=== PATIENT | male | born 1950 | race Caucasian/White ===

== ENCOUNTER 2019-03-28 06:38 | Day surgery (SDC) | payer BC, SELFPAY ==
--- NOTE | 2019-03-28 | PATH_ITS ---
[facility] Accession Number: [id number] . 01 Material submitted: . PART A: cecum - CECAL POLYPS PART B: colon - POLYP AT 80 CM PART C: colon - POLYPS AT 60 CM . 02 Diagnosis: A. Cecum, Polyps: Fragments of colonic mucosa with no diagnostic abnormality, consistent with polypoid redundancies. Negative for serrated lesion, dysplasia or malignancy. . B. Colon Polyp at 80 cm, Biopsy: Tubular adenoma. . C. Colon Polyps at 60 cm, Biopsies: Tubular adenoma x2. MRV 03/29/2019 1236 Local . 02 Electronically signed: . Bay Snow MD, PhD, Pathologist NPI- [id number] . 01 Gross description: . Part A: CECAL POLYPS: Received in formalin are 3 fragment(s) of prieto, soft tissue measuring 0.1 x 0.1 x 0.1 cm to 0.2 x 0.1 x 0.1 cm submitted entirely in 1 cassette(s) Part B: POLYP AT 80 CM: Received in formalin are 2 fragment(s) of prieto, soft tissue measuring 0.1 x 0.1 x 0.1 cm to 0.2 x 0.1 x 0.1 cm submitted entirely in 1 cassette(s) Part C: POLYPS AT 60 CM: Received in formalin are 2 fragment(s) of prieto, soft tissue measuring 0.1 x 0.1 x 0.1 cm to 0.2 x 0.2 x 0.2 cm submitted entirely in 1 cassette(s) /[facility] [place] 03/28/2019 1945 Local . 02 Pathologist provided ICD-10: D12.6, K63.5 . 02 CPT . 849919, 499208, [id number] Performed at: 01 [facility] [address] [address], [place], [place] [id number] MD Tacos Levin MD Phone: [phone] Performed at: 02 [facility] [address] [place] [id number] MD Heather Rendon MD Phone: [phone]
[2019-03-28 07:12] VITALS: BP 137/85; PULSE 83; RESP 18; TEMP 36.8; O2SAT 96; BMI 32.5
[2019-03-28] MEDS: SODIUM CHLORIDE 0.9% 1,000 ML 200 ML IV (07:49)
--- NOTE | 2019-03-28 07:50 | PM.HP.1 ---
History of Present Illness History of Present Illness Date Patient Seen: 03/28/19 Time Patient Seen: 07:51 Chief complaint: [id number] Narrative: Patient presents for colorectal screening. There previous colonoscopy 5 years ago that was significant for adenomatous polyps as well as a delayed onset of bleeding following polypectomy. There are not on anticoagulation.. Father developed colon cancer otherwise family history is unremarkable.. On further history denies any recent gastrointestinal symptoms. No nausea, vomiting, abdominal pain, loss of appetite, unexplained weight loss, change in bowel habits, diarrhea, constipation, melena, hematochezia, or bright red blood per rectum. Patient History Medical History (Updated 03/28/19 @ 07:53 by Yogi Kent MD) HTN (hypertension) (Acute) Surgical History (Updated 03/28/19 @ 07:52 by Yogi Kent MD) History of cholecystectomy (Acute) Family & Social History Family History (Updated 03/28/19 @ 07:52 by Yogi Kent MD) Father Cancer Social History: household members spouse Tobacco & Substance use: Smoking Status Never smoker alcohol intake current alcohol intake frequency other Substance Use Type does not use Meds Home Medications and Allergies Home Medications Medication Instructions Recorded Confirmed Type ASPIRIN (Aspirin Low Dose) #0 06/17/09 History CHOLECALCIFEROL (VITAMIN D3) 1,000 iu PO Q DAY #0 06/17/09 History (Vitamin D3) MULTIVITAMIN (Multivitamin 1 cap PO EVERY DAY #0 06/17/09 History -) [LOTRTREL 12/26] #0 06/17/09 History cetirizine-pseudoephedrine 1 tab PO Q12H PRN 03/28/19 03/28/19 History [Zyrtec-D] furosemide [Lasix] 20 mg PO DAILY 03/28/19 03/28/19 History ibuprofen 200 mg PO Q6H PRN 03/28/19 03/28/19 History lutein-zeaxanthin 1 cap PO DAILY 03/28/19 03/28/19 History naproxen sodium [Aleve] 220 mg PO PRN PRN 03/28/19 03/28/19 History nitroglycerin 0.4 mg SUBLINGUAL PRN PRN 03/28/19 03/28/19 History sildenafil [Viagra] 50 mg PO DAILY PRN 01/20/20 01/20/20 History simvastatin 20 mg PO DAILY 03/28/19 03/28/19 History Allergies Allergy/AdvReac Type Severity Reaction Status Date / Time No Known Drug Allergies Allergy Verified 03/28/19 07:16 Review of Systems Review of Systems Narrative: A 10 point review of systems is negative except as noted in the HPI Exam Vital Signs (past 8 hours): - 03/28/19 07:12 Temperature 98.2 F Pulse Rate 83 Respiratory Rate 18 Blood Pressure 137/85 Pulse Oximetry 96 Oxygen Delivery Method Room Air Narrative Exam Narrative: General-no acute distress, well nourished HEENT-moist mucous membranes, no scleral icterus Neck-supple, no lymphadenopathy Chest- non labored respirations, clear to auscultation bilaterally Cardiac-regular rate no peripheral edema Abdomen-soft, nontender, non distended Extremities-warm, well perfused Neurological-alert and oriented, no focal deficits Assessment & Plan Assessment and plan (1) Screening for colon cancer: Current visit: Yes Status: Acute Assessment & Plan narrative: The patient requires colorectal screening and colonoscopy is recommended. Technical details were discussed. Risks, benefits, alternatives explained. Risks including but not limited to myocardial infarction, aspiration, bleeding, pain, missed lesion, incomplete examination, need for further radiographic studies, colonic perforation, and need for major abdominal surgery were discussed. All questions were answered to their satisfaction, and they are in agreement with this plan.
--- NOTE | 2019-03-28 08:34 | PM.OP.ENDO ---
Operative Date/Time/Diagnoses Date of procedure: 03/28/19 Time of procedure: 08:35 Pre-op diagnosis: Family history of colon cancer History of adenomatous polyp Post-op diagnosis: same Procedure & Clinicians Study performed: Colonoscopy Same procedure as scheduled: Yes Indications: This is a 68-year-old man with a history of adenomatous polyps last colonoscopy 5 years ago and first-degree relative with colon cancer. He presents for routine screening. Surgeon: Yogi Kent Procedure Notes SCOAP/Timeout: Performed Procedure in detail: Patient placed in left lateral decubitus position. Time out was performed. Procedural sedation was administered with Versed and Fentanyl. A rectal exam demonstrated no external hemorrhoids no internal masses. Colonoscopy scope was placed into the rectum and advanced through the colon to the cecum. The ileocecal valve was identified. The scope was then slowly withdrawn examining colon thoroughly in all directions. The colonoscopy was notable for the following 1. Cecal polyp less than 1 cm adenomatous appearing removed with Jumbo biopsy forceps 2. Adenomatous appearing polyp less than 1 cm and 80 cm from the anal verge removed with Jumbo biopsy forceps 3. Two adenomatous appearing polyps each less than 1 cm at 60 cm from the anal verge both removed with Jumbo biopsy forceps 4. Grade 2 internal hemorrhoids 5. Quality of prep moderate Scope withdrawal time: 22 Sedation minutes: 36 Findings: internal hemorrhoids and polyp Specimen(s): other (Polyps) Impression: Multiple adenomatous polyps Post-procedure Recommendations: Colonscopy in 5 years Disposition: same day surgery
[2019-03-28] MEDS: MIDAZOLAM 5 MG/5 ML VIAL IV (08:37)
[2019-03-28] MEDS: fentaNYL 250 MCG/5 ML INJ IV (08:37)
[2019-03-28 08:39] VITALS: BP 132/73; PULSE 64; RESP 13; O2SAT 98
[2019-03-28 08:42] VITALS: BP 122/75; PULSE 66; RESP 13; TEMP 36.6; O2SAT 97
[2019-03-28 08:47] VITALS: BP 126/76; PULSE 70; RESP 14; O2SAT 99
[2019-03-28 08:52] VITALS: BP 123/75; PULSE 61; RESP 15; O2SAT 98
[2019-03-28 09:00] VITALS: BP 121/78; PULSE 60; RESP 15; TEMP 36.3; O2SAT 96
== END 2019-03-28 09:12 | disposition home or self-care (01) ==
PROVIDERS: Family Provider Family Medicine; PCP Family Medicine; Visit Provider Surgery
PROC: 0DJD8ZZ Inspection of Lower Intestinal Tract, Via Natural or Artificial Opening Endoscopic (ICD-10-PCS; CPT 45378; principal; 2019-03-28 07:45)
DX: Z12.11 Encounter for screening for malignant neoplasm of colon (principal); Z86.010 Personal history of colon polyps; Z80.0 Family history of malignant neoplasm of digestive organs; K64.1 Second degree hemorrhoids; I10 Essential (primary) hypertension; D12.6 Benign neoplasm of colon, unspecified
CPT/HCPCS: 45380; 99152; J2250; J3010

== ENCOUNTER → 2021-05-06 11:03 | Outpatient (CLI) | payer MEDICARE, OTHER, SELFPAY ==
[2021-05-06 13:09] LABS: COVID19 -Nasal RAPID Negative (Negative)
== END ==
PROVIDERS: Family Provider Family Medicine; PCP Family Medicine; Visit Provider Surgery
DX: Z01.812 Encounter for preprocedural laboratory examination (principal); Z20.822 Contact with and (suspected) exposure to COVID-19
CPT/HCPCS: 87635; C9803

== ENCOUNTER 2021-05-07 10:25 | Day surgery (SDC) | payer MEDICARE, OTHER, SELFPAY ==
[2021-04-02 09:39] VITALS: BMI 35.2
[2021-05-07 11:11] VITALS: BP 150/85; PULSE 79; RESP 12; TEMP 36.7; O2SAT 97; BMI 35.2
[2021-05-07] MEDS: LACTATED RINGERS 1,000 ML 42 ML IV (11:29)
--- NOTE | 2021-05-07 12:51 | PM.HP.1 ---
History of Present Illness History of Present Illness Date Patient Seen: 05/07/21 Time Patient Seen: 12:51 Chief complaint: SDC Narrative: 70 year old man with a right inguinal hernia that bothers him. He had a CT scan which showed bilateral inguinal herniae. He has never had symptoms on the left side. Patient History Medical History (Updated 04/02/21 @ 09:41 by Felicia Huber RN) Arthritis Elevated cholesterol HTN (hypertension) Sinus drainage Surgical History History of cholecystectomy Family & Social History Family History Father Cancer Social History: household members spouse Tobacco & Substance use: Smoking Status Never smoker alcohol intake current alcohol intake frequency holiday/special occasion Substance Use Type does not use Meds Home Medications and Allergies Home Medications Medication Instructions Recorded Confirmed Type aspirin 81 mg tablet,delayed 81 mg PO DAILY #0 06/17/09 05/07/21 History release (Aspirin Low Dose) cholecalciferol (vitamin D3) 50 50 mcg PO DAILY #0 06/17/09 04/02/21 History mcg (2,000 unit) capsule (Vitamin D3) multivitamin 1 tab PO DAILY #0 06/17/09 05/07/21 History furosemide 20 mg tablet (Lasix) 20 mg PO DAILY 03/28/19 05/07/21 History lutein 25 mg-zeaxanthin 5 mg 1 cap PO DAILY 03/28/19 05/07/21 History capsule sildenafil 50 mg tablet (Viagra) 50 mg PO DAILY PRN 03/28/19 04/02/21 History simvastatin 20 mg tablet 20 mg PO DAILY 03/28/19 05/07/21 History amlodipine 10 mg-benazepril 20 mg 1 cap PO DAILY 04/02/21 05/07/21 History capsule naproxen sodium 220 mg capsule 220 mg PO Q8H PRN 04/02/21 05/07/21 History (Aleve) triamcinolone acetonide 0.1 % applic TOPICAL 05/07/21 History topical cream Allergies Allergy/AdvReac Type Severity Reaction Status Date / Time No Known Drug Allergies Allergy Verified 05/07/21 11:06 Exam Vital Signs (past 8 hours): - 05/07/21 11:11 Temperature 98.0 F Pulse Rate 79 Respiratory Rate 12 Blood Pressure 150/85 H Pulse Oximetry 97 Oxygen Delivery Method Room Air Const General: comfortable Resp Effort & Inspection: normal respiratory effort GI Palpation: soft Assessment & Plan Assessment and plan (1) Right inguinal hernia: Status: Acute Plan 70 year old man with a symptomatic right inguinal hernia. We reviewed the risks and benefits of open right inuinal hernia. He would like to proceed. COVID-19 COVID-19 status: Negative Result date/Date tested (Pos, Neg/Pending): 05/06/21 Time Spent With Patient Critical Care time: I spent a total of [] minutes of critical care time on this patient's care today; this time is exclusive of procedural time.
[2021-05-07] MEDS: CEFAZOLIN 2 GM/20 ML SYRINGE IV (13:36)
--- NOTE | 2021-05-07 13:46 | SUR.OPER ---
Supine on padded OR bed, head on pillow, arms secured on padded arm boards at <90 degrees abduction, legs uncrossed, safety belt at thigh, tape over blanket over lower legs.
[2021-05-07] MEDS: BUPIVACAINE 0.5% (PF) 30 ML, EPINEPHrine 0.15 MG INJ (14:03)
[2021-05-07] MEDS: LIDOCAINE 1% 20 ML INJ (14:06)
--- NOTE | 2021-05-07 15:21 | P.OP_ITS ---
Operative Date/Time/Diagnoses Date of procedure: 05/07/21 Time of procedure: 15:21 Pre-op diagnosis: Right inguinal hernia Post-op diagnosis: same Procedure & Clinicians Procedure: Open right inguinal hernia repair with mesh Same procedure as scheduled: Yes Surgeon: Faisal Rodriguez Operations Research Scientist: Yogi Kent Anesthesia Type: General Operative Notes Findings: Large direct right inguinal hernia and patulous abdominal Estimated Blood Loss (mL): 20 Procedure in detail: Preoperative antibiotic was administered. The patient was brought to the operating room and placed on the table in supine position general anesthesia was induced. The right groin was prepped and draped in the normal fashion and a time-out was performed. Roughly 10 mL of local anesthetic were injected into the skin and subcutaneous adipose tissue over the right groin. A 10 cm incision was made over the right inguinal canal. Dissection was carried down through the subcutaneous adipose tissue. A bridging vein was tied off with 3-0 Vicryl ties and divided. We exposed the external oblique aponeurosis in the direction of the fibers. Additional local was injected deep to the aponeurosis. A 15 blade scalpel was used to cleo the external oblique aponeurosis. Metzenbaum scissors were used to carefully open the aponeurosis in the direction of the fibers taking care not to injure the underlying ilioinguinal nerve which was well seen and protected. We completely exposed the inguinal canal. The cord was dissected free from the inguinal ligament and floor of the inguinal canal and the external oblique aponeurosis was dissected off of the internal oblique taking care not to injure the hypogastric nerve. We encircled the cord with a Mercedez drain for retraction. A large fat-containing direct right inguinal hernia was dissected free and reduced into the abdomen. We then opened the large plug and patch. The plug was secured into the direct defect with multiple 0 Ethibond sutures. The mesh sheet was secured with multiple interrupted 0 Ethibond sutures to the pubic tubercle and shelving edge of the inguinal ligament as well as to the conjoint tendon medially. The tails were secured to each other to recreate the internal ring and both tails were secured to the inguinal ligament. We injected some more local into the fatty tissue in the inguinal canal and cord. Finally, we removed the Franklin drain and closed the external oblique fascia with a running 3-0 Vicryl suture. Skin was closed with interrupted 3-0 Vicryl dermal sutures and a running 4 Monocryl subcuticular stitch. The case was difficult because of the patient's obesity, patulous lower abdominal wall and large direct defect. Dr. Kent provided assistance with exposure and intraoperative decision making and his assistance was essential to completion of the case. EBL 10 mL The patient was awakened and brought to recovery room. Post-operative Condition: stable Disposition: PACU
[2021-05-07 15:23] VITALS: BP 135/69; PULSE 82; RESP 11; TEMP 36.4; O2SAT 97
[2021-05-07 15:28] VITALS: BP 143/63; PULSE 82; RESP 11; O2SAT 99
[2021-05-07 15:33] VITALS: BP 142/70; PULSE 79; RESP 15; TEMP 36.5; O2SAT 98
[2021-05-07 15:48] VITALS: BP 143/72; PULSE 70; RESP 16; TEMP 36.5; O2SAT 97
[2021-05-07 16:08] VITALS: BP 130/70; PULSE 71; RESP 20; TEMP 36.6; O2SAT 96
== END 2021-05-07 16:09 | disposition home or self-care (01) ==
PROVIDERS: Family Provider Family Medicine; PCP Family Medicine; Referring Provider Surgery; Visit Provider Surgery
PROC: (CPT 49505; principal; 2021-05-07 11:45)
DX: K40.90 Unilateral inguinal hernia, without obstruction or gangrene, not specified as recurrent (principal); I10 Essential (primary) hypertension; E78.00 Pure hypercholesterolemia, unspecified
CPT/HCPCS: 49505; J0171; J0690; J2405; J2704; J3010

== ENCOUNTER → 2022-03-17 08:03 | Outpatient (CLI) | payer MEDICARE, OTHER, SELFPAY ==
[2022-03-17 08:53] LABS: Add Manual Diff / Slide Review NO; Basophils Absolute Auto 0 /uL (0-100); Basophils Percent Auto 0.5 % (0-2); Eosinophils Absolute Auto 300 /uL (0-450); Eosinophils Percent Auto 4.5 % (2-4); Hemoglobin 14.6 g/dL (13.5-17.5); Lymphocytes Absolute Auto 900 /uL (1100-4500); Lymphocytes Percent Auto 12.9 % (25-40); Mean Corpuscular HGB Conc 33.9 % (30-36); Mean Corpuscular Hemoglobin 29.2 PG (26-34); Mean Corpuscular Volume 86.1 fL (80-100); Monocytes Absolute Auto 800 /uL (0-900); Monocytes Percent Auto 12.3 % (3-14); Neutrophils Absolute Auto 4800 /uL (1500-7000); Neutrophils Percent Auto 69.8 % (50-75); Platelet Count 222 X10^3/uL (150-400); White Blood Cell Count 6.8 X10^3/uL (4.5-11.0)
[2022-03-17 09:03] LABS: BUN Creatinine Ratio 15.1 (6-22); Blood Urea Nitrogen 21 mg/dL (9-20); Calcium 10.5 mg/dL (8.4-10.2); Carbon Dioxide 27 mmol/L (22-32); Chloride 106 mmol/L (98-107); Estimated Glomerular Filt Rate 54 mL/min (>60); Glucose 93 mg/dL (80-110); HEMOLYSIS < 15 (0-50); Potassium 3.8 mmol/L (3.4-5.1); Sodium 141 mmol/L (137-145)
[2022-03-17 09:04] LABS: Hemoglobin A1C% w Est Avg Glu 5.5 % (4.0-6.0)
[2022-03-17 10:35] LABS: Appearance Urine UA CLEAR; Bilirubin Urine UA NEGATIVE (NEGATIVE); Color Urine UA YELLOW; Glucose Urine UA NEGATIVE (Negative); Ketones Urine UA NEGATIVE (NEGATIVE); Leukocyte Esterase Urine UA NEGATIVE (NEGATIVE); Nitrite Urine UA NEGATIVE (Negative); Occult Blood Urine UA NEGATIVE (Negative); Protein Urine UA NEGATIVE (Negative); Specific Gravity Urine UA 1.015 (1.000-1.035); Urobilinogen Urine UA 0.2 E.U./dL (0.2)
[2022-03-17 10:41] LABS: Bacteria Urine None Seen; Culture Indicated Urine Cult Not Indicated; RBC Urine None Seen (0-5/HPF); Urine Comments Microscopic Normal; WBC Urine None Seen (0-5/HPF)
== END ==
PROVIDERS: Family Provider Family Medicine; PCP Family Medicine; Referring Provider Orthopaedic Surgery; Visit Provider Orthopaedic Surgery
DX: Z01.818 Encounter for other preprocedural examination (principal); N39.0 Urinary tract infection, site not specified; R73.9 Hyperglycemia, unspecified; M25.561 Pain in right knee; Z01.812 Encounter for preprocedural laboratory examination
CPT/HCPCS: 36415; 80048; 81001; 83036; 85025; 93005; 93010